=== PATIENT | female | born 1965 | race African-American/Black ===

== ENCOUNTER 2022-01-09 09:16 | Emergency (ER) | payer OTHER ==
[2022-01-09 09:42] VITALS: RESP 16; TEMP 99; BMI 33.6
[2022-01-09] MEDS ORDERED: SODIUM CHLORIDE 1,000 ML IV STA (10:10)
[2022-01-09] MEDS ORDERED: ACETAMINOPHEN 1000 MG/100 ML BAG IVPB ONE (10:11)
[2022-01-09] MEDS ORDERED: ACETAMINOPHEN INJECTION 100 ML IVPB ONE (10:50)
[2022-01-09 11:27] LABS: HEMATOCRIT 43.1 % (32.4-45.2); HEMOGLOBIN 15.3 G/dL (10.7-15.3); MCH 32.7 pg (25.7-33.7); MCHC 35.6 g/dl (32.0-36.0); MEAN CELL VOLUME 91.8 fl (80-96); MEAN PLT VOLUME 8.6 fl (7.5-11.1); PLATELET COUNT 212.6 10^3/uL (134-434); RBC 4.69 10^6/uL (3.60-5.2); RDW 13.1 % (11.6-15.6); WHITE BLOOD COUNT 5.3 10^3/uL (4.0-10.8)
[2022-01-09 11:37] VITALS: BP 167/77; PULSE 80
[2022-01-09 11:39] LABS: ALBUMIN 4.1 g/dl (3.4-5.0); BILIRUBIN,TOTAL 0.8 mg/dl (0.2-1); CREATININE 0.5 mg/dl (0.55-1.3); MAGNESIUM 1.7 mg/dL (1.8-2.4); TOT PROT 7.9 g/dl (6.4-8.2)
[2022-01-09 11:42] LABS: CALCIUM 9.5 mg/dl (8.5-10)
[2022-01-09] MEDS ORDERED: METOCLOPRAMIDE HCL INJECTION 10 MG/2 ML VIAL IVPB ONE (12:04)
[2022-01-09] MEDS ORDERED: MAGNESIUM SULF 50% (8.12 MEQ/2 ML-1 GM VIAL) IVPB ONE (12:05)
[2022-01-09] MEDS ORDERED: MAGNESIUM SULFATE IN WATER 2 GM/50 ML IVPB IVPB ONE (12:22)
[2022-01-09] MEDS ORDERED: METOCLOPRAMIDE HCL INJECTION 10 MG/2 ML VIAL ONE (12:22)
[2022-01-09 13:01] LABS: PLATELET ESTIMATE ADEQUATE
== END 2022-01-09 13:47 | disposition home or self-care (01) ==
LOC: FER 09:16
PROC: 3E033GC Introduction of Other Therapeutic Substance into Peripheral Vein, Percutaneous Approach (ICD-10-PCS; principal; 2022-01-09)
DX: R51.9 Headache, unspecified (principal); E11.65 Type 2 diabetes mellitus with hyperglycemia
CPT/HCPCS: 0241U-QW; 36415; 80053; 81003; 83735; 85027; 87077; 87086; 99284-25